=== PATIENT | male | born 1955 | race Caucasian/White ===

== ENCOUNTER 2024-06-17 13:15 | Inpatient (IN) | payer MEDICARE ==
[2024-06-17 13:36] LABS: BASE EXCESS ARTERIAL 2.9 mm/L; BICARBONATE,ARTERIAL 30.3 mmol/L (22.0-26.0); CARBOXYHEMOGLOBIN 3.1 % (0.0-1.6); METHEMOGLOBIN 0.8 %; O2 SATURATION ARTERIAL 98.6 % (95.0-98.0); OXYHEMOGLOBIN 94.8 %; PCO2 ARTERIAL 57.8 mmHg (35.0-42.0); TOTAL HEMOGLOBIN 18.2 g/dL (13.5-18.0)
[2024-06-17 13:48] LABS: BASOPHILS PERCENT AUTO 0.1 % (0.1-1.3); HEMATOCRIT 51.8 % (38.4-49.7); HEMOGLOBIN 17.4 g/dL (12.9-16.9); IMMATURE GRAN ABSOLUTE AUTO 0.04 K/uL (0.00-0.23); IMMATURE GRAN PERCENT AUTO 0.4 % (0.0-0.7); LYMPHOCYTES ABSOLUTE AUTO 0.53 K/uL (0.8-3.3); LYMPHOCYTES PERCENT AUTO 5.4 % (11.4-47.7); MEAN CORPUSCULAR HEMOGLOBIN 32.1 pg (31.6-35.5); MEAN CORPUSCULAR HGB CONC 33.6 g/dL (31.6-35.5); MEAN CORPUSCULAR VOLUME 95.6 fL (81.4-99.0); NEUTROPHILS ABSOLUTE AUTO 9.01 K/uL (1.0-7.6); NEUTROPHILS PERCENT AUTO 91.1 % (40.0-78.1); PLATELET COUNT,PLT 202 K/uL (130-375); RED BLOOD CELL COUNT 5.42 M/uL (4.14-5.76); WHITE BLOOD CELL COUNT,WBC 9.9 K/uL (3.2-11.0)
[2024-06-17] MEDS: Sodium Chloride 0.9% 1,000 ML IV SCH (13:50)
[2024-06-17] MEDS: Ondansetron 4 MG/2 ML SDV IVPUSH ONE (13:50)
[2024-06-17 13:53] LABS: BASOPHILS ABSOLUTE AUTO 0.01 K/uL (0.00-0.10)
[2024-06-17 14:18] LABS: APPEARANCE,URINE SLIGHTLY CLOUDY (CLEAR); BILIRUBIN,URINE SMALL (NEGATIVE); COLOR,URINE YELLOW (YELLOW); GLUCOSE,URINE NEGATIVE (NEGATIVE); KETONES,URINE NEGATIVE (NEGATIVE); LEUKOCYTE ESTERASE,URINE NEGATIVE (NEGATIVE); NITRITE,URINE NEGATIVE (NEGATIVE); OCCULT BLOOD,URINE MODERATE (NEGATIVE); PH,URINE 5.5 (5.0-8.0); PROTEIN,URINE TRACE mg/dL (NEGATIVE); UROBILINOGEN,URINE 0.2 EU/dL (0.2-1.0)
[2024-06-17 14:21] LABS: INR 1.1
[2024-06-17 14:24] LABS: A/G RATIO 0.7 (1.2-2.2); ALANINE AMINOTRANSFERASE,ALT 35 U/L (12-78); ALBUMIN 3.2 g/dL (3.4-5.0); ALKALINE PHOSPHATASE 68 U/L (46-116); ANION GAP 5.8 mmol/L (5.0-14.0); ASPARTATE AMNIOTRANSFERASE,AST 65 U/L (15-37); BILIRUBIN TOTAL 1.5 mg/dL (0.2-1.0); BLOOD UREA NITROGEN,BUN 35 mg/dL (7-18); CALCIUM 9.3 mg/dL (8.5-10.1); CARBON DIOXIDE,CO2 32 mmol/L (21-32); CHLORIDE,CL 108 mmol/L (100-108); EST CRCL DRUG DOSING (CG) 76.52 mL/min; ESTIMATED GFR 81 mL/min (>60); GLUCOSE RANDOM 133 mg/dL (74-106); PRO B-TYPE NATRIUR PEPT,BNPPRO 512 pg/mL (5-125); PROTEIN TOTAL,TP 8.1 g/dL (6.4-8.2); SODIUM,NA 146 mmol/L (140-148)
[2024-06-17 14:29] LABS: AMPHETAMINES SCREEN, URINE NEGATIVE (NEGATIVE); BARBITURATE SCREEN,URINE NEGATIVE (NEGATIVE); BENZODIAZEPINES SCREEN,URINE NEGATIVE (NEGATIVE); METHADONE SCREEN, URINE NEGATIVE (NEGATIVE); METHAMPHETAMINES SCREEN, URINE NEGATIVE (NEGATIVE); OXYCODONE SCREEN,URINE NEGATIVE (NEGATIVE); PROPOXYPHENE SCREEN,URINE NEGATIVE (NEGATIVE); RBC,URINE 0-5 (0-5); THC SCREEN,URINE 50 NG/ML NEGATIVE (NEGATIVE)
[2024-06-17 14:30] LABS: AMORPHOUS SEDIMENT,URINE RARE; BACTERIA,URINE RARE; EPITHELIAL CELLS,URINE NOT SEEN; MUCUS,URINE NOT SEEN; WBC,URINE NOT SEEN (0-5)
[2024-06-17 14:50] LABS: CORONAVIRUS COVID-19 NAA NEGATIVE (NEGATIVE); INFLUENZA A NAA NEGATIVE (NEGATIVE); INFLUENZA B NAA NEGATIVE (NEGATIVE); RESPIRATORY SYNCYTIAL VIR NAA NEGATIVE (NEGATIVE)
[2024-06-17] MEDS: Iopamidol 755 Mg/ML 100 ML Bottle IV SCH (15:15)
[2024-06-17] MEDS: Sodium Chloride 0.9% 100 ML IV SCH (15:15)
[2024-06-17] MEDS: Pantoprazole 40 MG Vial IVPUSH ONE (18:00)
[2024-06-17] MEDS: Prochlorperazine 10 MG/2 ML SDV IVPUSH ONE (18:00)
[2024-06-17] MEDS ORDERED: LORazepam 2 MG/ML SDV IVPUSH PRN (18:11)
[2024-06-17] MEDS ORDERED: Ondansetron 4 MG Tab.DIS PO PRN (18:11)
[2024-06-17] MEDS ORDERED: Albuterol 0.083% 2.5 MG/3 ML Neb Soln NEB PRN (18:11)
[2024-06-17] MEDS ORDERED: Ondansetron 4 MG/2 ML SDV IV PRN (18:11)
[2024-06-17] MEDS ORDERED: Magnesium Hydroxide 400 MG/5 ML Susp 30 ML Cup PO PRN (18:11)
[2024-06-17] MEDS ORDERED: Sennosides/Docusate Sodium 50-8.6 MG Tab PO PRN (18:11)
[2024-06-17] MEDS ORDERED: Acetaminophen 325 MG Tab PO PRN (18:11)
[2024-06-17] MEDS ORDERED: Sodium Chloride 0.9% 1,000 ML IV SCH (18:11)
[2024-06-17] MEDS: Losartan 50 MG Tab ONE (20:00)
[2024-06-17] MEDS: Losartan 25 MG Tab PO SCH (20:00)
[2024-06-17] MEDS: Piperacillin/Tazobactam 4.5 GM in Sodium Chloride 0.9% 100 ML IV STA (21:07)
[2024-06-17] MEDS: methylPREDNISolone Sodium Succinate 125 MG/2 ML SDV IVPUSH ONE (21:08)
[2024-06-17] MEDS: Albuterol/Ipratropium 3.0-0.5 MG/3 ML Neb Soln NEB SCH (21:14)
[2024-06-17] MEDS: Albuterol/Ipratropium 3.0-0.5 MG/3 ML Neb Soln ONE (21:28)
[2024-06-17 21:31] LABS: BASE EXCESS ARTERIAL 2.7 mm/L; BICARBONATE,ARTERIAL 34.4 mmol/L (22.0-26.0); METHEMOGLOBIN 0.7 %; O2 SATURATION ARTERIAL 97.7 % (95.0-98.0); OXYHEMOGLOBIN 95.1 %; TOTAL HEMOGLOBIN 16.4 g/dL (13.5-18.0)
[2024-06-17] MEDS: Sodium Chloride 0.9% 1,000 ML IV ONE (21:47)
[2024-06-17 22:08] LABS: LACTIC ACID 0.7 mmol/L (0.4-2.0)
[2024-06-18] MEDS ORDERED: Piperacillin/Tazobactam 4.5 GM in Sodium Chloride 0.9% 100 ML IV SCH (01:00)
[2024-06-18] MEDS ORDERED: Pantoprazole 40 MG Vial IV SCH (06:00)
[2024-06-18] MEDS ORDERED: Allopurinol 100 MG Tab PO SCH (09:00)
[2024-06-18] MEDS ORDERED: Verapamil 120 MG Tab.ER PO SCH (09:00)
== END 2024-06-17 23:30 | DRG 564 ==
LOC: JP.ED 13:15 → JP.MS 17:18
PROVIDERS: ADMIT Internal Medicine; ATTEND Internal Medicine
PROC: 4A133R1 Monitoring of Arterial Saturation, Peripheral, Percutaneous Approach (ICD-10-PCS; principal; 2024-06-17)
DX: T79.6XXA Traumatic ischemia of muscle, initial encounter (principal); R09.02 Hypoxemia; R06.02 Shortness of breath; J96.91 Respiratory failure, unspecified with hypoxia; W19.XXXA Unspecified fall, initial encounter; Z68.41 Body mass index [BMI] 40.0-44.9, adult; E86.0 Dehydration; I10 Essential (primary) hypertension; I27.20 Pulmonary hypertension, unspecified; E66.01 Morbid (severe) obesity due to excess calories; R11.10 Vomiting, unspecified; Z79.899 Other long term (current) drug therapy
CPT/HCPCS: 0241U; 36415; 36600; 70450; 71045; 71275; 80053; 80305; 80307; 81001; 82550; 82803; 83605; 83880; 84145; 84484; 85025; 85379; 85610; 87040; 93005; 94640; 94660; A9270-GY; J0780; J2405; J2470; J2543; J2919; J3490; J7030; J7620; Q9967